=== PATIENT | male | born 1975 | race Caucasian/White ===

== ENCOUNTER 2018-01-30 09:04 | Day surgery (SDC) | payer OTHER ==
[~2018-01-30] VITALS: Ht 175.3 cm; Wt 93.0 kg
[2018-01-30] MEDS ORDERED: LIDOCAINE 2% 100 MG/5 ML UJET TP ONE (10:48)
[2018-01-30] MEDS ORDERED: KETOROLAC 30 MG/ML VIAL ONE (10:48)
== END 2018-01-30 11:45 | disposition home or self-care (01) ==
LOC: MDS 09:04 → MMU 09:04 → MDS 11:45
PROVIDERS: ATTEND Internal Medicine Gastroenterology
DX: K64.4 Residual hemorrhoidal skin tags (principal); Z87.891 Personal history of nicotine dependence; E66.3 Overweight
CPT/HCPCS: 45385; J1885